=== PATIENT | male | born 1945 | race Caucasian/White ===

== ENCOUNTER 2019-03-17 15:03 | Inpatient (IN) | payer OTHER, MEDICARE ==
[~2019-03-17] VITALS: Ht 172.7 cm; Wt 64.4 kg
[~2019-03-17 15:03] MED LIST: ASPIR 8181 MG PO; COQ-10100 MG PO; CRESTOR40 MG PO; FISH OIL OMEGA1 EAC1 PO; HYDROCODON-ACE1 EAC5 PO; LISINOPRIL20 MG PO; MULTIVITAMINS1 EAC7 PO; PLAVIX 75 MG TA75 M1 PO; TOPROL XL50 MG PO; VITAMIN D2000 UNIT PO
[2019-03-17 15:05] VITALS: BP 152/67
[2019-03-17 15:42] LABS: ABSOLUTE NEUTROPHILS 5.4 thou/uL (1.4-8.2); BASOPHILS 1.8 % (0.0-2.0); HEMATOCRIT 41.6 % (42.0-52.0); HEMOGLOBIN 13.9 gm/dL (14.0-18.0); LYMPHOCYTES 23.9 % (24.0-44.0); MCH 31.6 pg (26.0-34.0); MCHC 33.3 g/dL (28.0-37.0); MCV 94.9 fL (80.0-100.0); MONOCYTES 10.7 % (1.0-8.0); PLATELET COUNT 179 thou/uL (150-400); POLYS 62.6 % (36.0-66.0); RBC 4.39 mil/uL (4.50-6.00); RDW 13.2 % (10.5-14.5); WBC 8.6 thou/uL (4.0-11.0)
[2019-03-17 16:01] LABS: ALBUMIN 3.4 g/dL (3.4-5.0); CREATININE 0.8 mg/dL (0.7-1.3); DIRECT BILIRUBIN 0.2 mg/dL (<0.1-0.2); POTASSIUM 3.6 mmol/L (3.5-5.1); TOTAL BILIRUBIN 0.8 mg/dL (<0.1-1.0); TOTAL PROTEIN 7.3 g/dL (6.4-8.2)
[2019-03-17 17:51] VITALS: BP 135/89
[2019-03-17 18:14] VITALS: BP 146/71
--- NOTE | 2019-03-17 18:46 | NUR ---
74 YO MALE ADMITTED TO 447 FROM ED. A&OX4, AMBULATES SELF IN ROOM. IV INTACT IN L FA. DENIES PAIN OR N/V AT THIS TIME AND REREQUESTING SOMETHING TO EAT. ORIENTED PT TO ROOM AND CALL LIGHT. PT WILL BE NPO AFTER MN.
[2019-03-17 22:10] VITALS: BP 115/63
[2019-03-18 03:40] VITALS: BP 123/67
--- NOTE | 2019-03-18 04:16 | NUR ---
ASSESSMENT COMPLETED.PT IS ALERT AND ORIENTED X 4. UP AD DIANA. AFEBRILE. IV FLUIDS INFUSING. NPO AFTER MIDNIGHT. PT C/O RLQ PAIN BUT DOES NOT WANT ANY PAIN MEDS. PROBABLY WILL HAVE SURGERY TODAY.
[2019-03-18 07:29] VITALS: BP 130/75
--- NOTE | 2019-03-18 14:44 | NUR ---
VASCULAR ACCESS NURSE NOTIFIED TO ASSESS THE PATIENTS RIGHT AC- THE NURSE REPORTS REDDNESS PAIN AND DISCOMFORT POST LAB DRAW 24 HOURS PRIOR. THE PATIENT AND FAMILY CONFIRM THE PATIENT DID HAVE A LAB DRAW YESTERDAY WHILE IN THE ER IN THE RIGHT AC. NO PERIPHERAL IV WAS INSERTED IN THE RIGHT ARM AND THE LEFT FOREARM PERIPHERAL IV IS WNL. THE RIGHT AC IS RED AND SWOLLEN ALONG THE VEIN. MEASURING APPROX 9CM UP THE ARM AND APPROX 2CM IN WIDTH. THE SITE IS HARD, WARM AND TENDER TO TOUCH. THE SITE WAS MARKED THE PATIENT IS REPORTING A SIGNIFICANT CHANGE THE SITE CONTINUES TO TRAVEL UP THE ARM AND BECOMING MORE PAINFUL. DR. WHITING HAS BEEN CONSULTED AND WILL ROUND TO SEE THE PATIENT THIS AFTERNOON. SPOKE TO NEAL SHEIKH ABOUT THE STREAK FORMATION AND PALPABLE CORD + PHLEBITIS SCALE OF 4. SHE WILL AWAIT DR. MELLO ASSESSMENT AND RECOMENDATION.
--- NOTE | 2019-03-18 15:14 | H ---
[facility] [place] [address] HISTORY AND PHYSICAL Name: SOPHIE GAGE Room #: 447-P [facility] IN M.R.#: [id number] Admission: 03/17/19 Attend Phys: Abelino Sotelo MD Discharge: Date of : 45 Report #: [id number] THIS REPORT FOR: //name// CC: Abhinav Sotelo CHIEF COMPLAINT: Abdominal pain. HISTORY OF PRESENT ILLNESS: The patient is a 74-year-old gentleman admitted to the Emergency Room yesterday with complaints of abdominal pain. Symptoms began on when he had pain in the right lower quadrant that was radiating across to the left side. He complained of some swollen or bloated type feeling, and loss of appetite. Unfortunately, [place] was out of the country and flew back some days later from [place] through [place]. He came to the office yesterday and was tender to palpation in the right lower quadrant. I sent him for an outpatient CT at diagnostic imaging, which showed some thickening and inflammation around the cecum, but the appendix could not be well-defined. He was directed to ER and subsequently admitted overnight. He underwent a colonoscopy in 03/2018, which just revealed internal hemorrhoids, but otherwise is unremarkable. He underwent a hemorrhoidectomy in 05/[address] Lester. Previously about 3 or 4 years ago, he had pain in the right lower quadrant, but not to this severity. His exam was unremarkable along with lab work. Ultrasound of the abdomen was unremarkable other than what a single gallstone. He also had a CT of the abdomen, which was unremarkable. PAST MEDICAL HISTORY: Coronary artery disease with prior history of stent, hypertension, peripheral vascular disease, dyslipidemia, COPD, chronic low back pain, kidney stones. PAST SURGICAL HISTORY: Noncontributory. FAMILY HISTORY: Noncontributory. SOCIAL HISTORY: He lives at home. No chronic alcohol or tobacco use. ALLERGIES: LIPITOR and TRAMADOL. MEDICATIONS: Toprol, Zestril, Crestor, vitamin D, multivitamin, CoQ10. He has used hydrocodone in the past and dexamethasone in the past for his back pain. REVIEW OF SYSTEMS: Denies headache, chest pain, shortness of breath, dysuria, myalgias, syncope or fall. OBJECTIVE: VITAL SIGNS: Temperature 36.8, pulse 57, respirations 17, blood pressure 130/75, O2 sat 100% on room air. [facility] [address] [place] [address] HISTORY AND PHYSICAL Name: SOPHIE GAGE Room #: 447-P [facility] IN ..#: [id number] Admission: 03/17/19 Attend Phys: Abelino Sotelo MD Discharge: Date of : 45 Report #: [id number] GENERAL: He is awake and alert, in no distress. LUNGS: Clear. HEART: Regular. ABDOMEN: Soft, normoactive bowel sounds. Tender with some guarding in the right lower quadrant. EXTREMITIES: No cyanosis, clubbing or edema. NEUROLOGIC: Cranial nerves intact. Alert and oriented. LABORATORY REVIEW: White count is 8.6. Chemistry is unremarkable. ASSESSMENT: Right lower quadrant abdominal pain. PLAN: Working diagnosis at this point as appendicitis, although it is not definitively clear on CT. I have spoken with Dr. Brandon and at this point, we will take a supportive approach. I have asked the GI team, Infectious Disease to see him as well. We may consider reimaging in 24-48 hours. Clinically, he appears stable. <ELECTRONICALLY SIGNED> By: Abelino Sotelo MD 03/18/19 1514 [id number] Abelino Sotelo MD /nt
[2019-03-18 15:49] VITALS: BP 136/77
--- NOTE | 2019-03-18 19:10 | NUR ---
PT A&OX4. AMBULATES SELF IN ROOM. IV INTACT IN L FA IFUSING FLUIDS W/O COMPS. DENIES NEED FOR PAIN MED THROUGHOUT THE DAY. PLACED ON CLEAR LIQUIDS AND TOLERATED. WILL CONT POC.
[2019-03-18 19:31] VITALS: BP 122/70
--- NOTE | 2019-03-18 20:08 | NUR ---
PT INFORMED THIS NURSE OF REDNESS TO R AC. HARDENED DIME SIZE AREA NOTED TO R AC WITH APPROX. 2 INCH RED STREAK GOING ABOVE AREA NOTED. IV TEAM NOTIFIED, KATINA RN ASSED THE SITE. CONSULTED TODAY THOUGH HAS NOT SEEN PT YET. NIGHT NURSE SAMANTHA INFORMED DURING SHIFT REPORT. UNABLE TO LEAVE VERG REPORT TEMPOARILY UNAVAILABLE.
--- NOTE | 2019-03-19 02:59 | NUR ---
ASSESSMENT COMPLETED. PT IS STILL UP AD DIANA. FINISHED BOWEL PREP BEFORE MIDNIGHT. HE HAS BEEN USING THE BATHROOM, AND REPORTS ALMOST CLR STOOL.AFEBRILE. CONTINUES ON IV ABTS AND FLUIDS. PLAN FOR COLONOSCOPY IN THE MORNING.
[2019-03-19 05:23] LABS: CALCIUM 8.8 mg/dL (8.5-10.1); CREATININE 0.8 mg/dL (0.7-1.3); POTASSIUM 4.1 mmol/L (3.5-5.1)
[2019-03-19 08:12] VITALS: BP 138/72
--- NOTE | 2019-03-19 10:39 | NUR ---
INITIAL ASSESSMENT: Pt evaluated for d/c planning needs. Reviewed chart and spoke with nurse and pt. Pt is alert and oriented. Pt lives in house with spouse and was independent with ADL's prior to admission to the hospital. Pt recently traveled to [place]; spouse remained in [place] to visit with her family. Pt uses no DME and has not had home health. Pt remains active in the community and is still driving. Pt plans on returning home on d/c from hospital. Will remain available to assist as needed.
[2019-03-19 18:16] VITALS: BP 123/71
[2019-03-19 19:45] VITALS: BP 121/75
--- NOTE | 2019-03-19 20:08 | NUR ---
Assumed care of pt at 0700. Pt went down for colonoscopy today. Will have his appendix removed tomorrow. Denies pain. IVF and antibiotics infusing. Pt transferred to senior suites.
--- NOTE | 2019-03-20 03:06 | NUR ---
PT WAS A TRANSFER FROM . PT ARRIVED TO THE UNIT WITH HIS SON. PT IS UP AD DIANA. PT HAS AN IV - LEFT AC. FLUIDS RUNNING @ 100MLS/HR. I HUNG PTS ANTIBIOTIC. PT IS A&OX4. PT HAS REDNESS ON HIS RIGHT ARM WITH A TRACE YAMILA TO WATCH ITS GROWTH. PT HAS REDDNESS ON THE LEFT ARM. PT ASKS QUESTIONS ABOUT HIS HEALTH. PT EXPRESSES THAT IF HE HAS TO STAY IN THE HOSPITAL OVER THE WEEKEND THAT HE WOULD NOT BE HAPPY. PT IS CONCERNED ABOUT HAVING TO HAVE MORE THAN THE APPENDIX REMOVED. PT IS AWARE THAT HE IS NPO AFTER MIDNIGHT. WILL CONTINUE TO MONITOR.
[2019-03-20 06:23] LABS: CALCIUM 8.7 mg/dL (8.5-10.1); CREATININE 0.8 mg/dL (0.7-1.3); POTASSIUM 3.8 mmol/L (3.5-5.1)
[2019-03-20 09:11] VITALS: BP 133/75
--- NOTE | 2019-03-20 12:51 | NUR ---
SW reviewed chart and spoke with nursing. Pt was transferred to [facility] from . Pt to have lap. appendectomy today. Pt remains on IV abx. Plan is for pt to discharge home when medically stable. [facility] is following to assist as needed with discharge planning.
[2019-03-20 16:11] VITALS: BP 156/89
--- NOTE | 2019-03-20 16:17 | NUR ---
PT IS AOX4, VSS, REPORTS PAIN 3/4 ON RIGHT SIDE OF AB. PT WENT DOWN FOR SURGICAL PROCEDURE, CURRENTLY IN HIS ROOM TOLERATING LIQUIDS, WILL ADVANCE TO REGULAR DIET. PT RECEIVED PAIN ANALGESIC ORDERED. CALL LIGHT/PERSONAL ITEMS IN REACH, WILL CONTINUE TO MONITOR PT.
[2019-03-20 21:29] VITALS: BP 118/81
--- NOTE | 2019-03-20 21:57 | NUR ---
AT APPROX 1999 PATIENT C/O PAIN AT INCISION SITE FROM LAPRASCOPIC APPENDECTOMY. PATIENT STATES HIS PAIN GETS UP TO A 10/10 ESPECIALLY WITH MOVEMENT OR CONTACT OF ANY KIND. PATIENT SAID WHEN HE TOUCHES HIS L SIDE IT RADIATES TO THE INCISION SITE. PATIENT SEEMS VERY WORRIED ABOUT THIS. UPON ASSESSMENT, BOWEL SOUNDS ARE ACTIVE; COLASE WAS GIVEN. PATIENT HAD A TURKEY SANDWHICH AT ABOUT 1900 AND WAS CONCERENED HE HADN'T HAD A BOWEL MOVEMENT SINCE 03/17/19. EDUCATION WAS PROVIDED. PAIN IS NOTED AND INCISION SITE WILL BE MONITORED FREQUENTLY. PATIENT HAS OXYCODONE ONETIME FOR BREAKTHROUGH PAIN. HE IS DECIDING WHETHER OR NOT TO TAKE IT. WILL CONTINUE TO MONITOR
--- NOTE | 2019-03-21 02:57 | NUR ---
ASSUMED PATIENT CARE AT APPROX. 1999. ASSESSMENT CHARTED. MEDICATIONS GIVEN PER MAY. PATIENT IS A&OX4, VITAL SIGNS ARE STABLE, O2 SATS REMAIN WNL ON RA. PATIENT C/O PAIN ON BOTH HIS LEFT AND RIGHT SIDE OF ABDOMEN. PATIENT IS CONCERNED THAT PERHAPS THE PROCEDURE HE HAD WENT WRONG. HE EXPRESSED CONCEREN SINCE HE DID NOT SEE DR. BULLOCK POST-OP. 20MLS OF DRAINAGE WERE MEASURED AT AROUND 0100. SURGICAL SITE WAS WARM TO TOUCH WITHOUT REDNESS. GAUZE WAS SATURATED IN SANGUENOUS DRAINAGE. UPON SKIN ASSESSMENT, REDNESS AND TRACE SWELLING WAS NOTED ON L ARM AROUND IV SITE. IV WAS D/C'D BY THIS NURSE AND SWELLING/REDNESS WAS TRACE MARKED. SCHEDULED PAIN AND ANTI-INFLAMMATORY MEDICATIONS IS GIVEN Q6 HOURS AND PRN PAIN MED IS AVAILABLE FOR PATIENT. PAIN CONTINUES TO VOICE PAIN AT A 8-10/10; EXACERBATED BY MOVEMENT AND CONTACT. WILL CONTINUE TO MONITOR PAIN LEVELS. PATIENT GETS UP INDEPENDENTLY WITH NO ISSUES EXCEPT PAIN. IV FLUIDS INFUSING AT 670ML/HR ON L UPPER ARM. PATIENT WOULD LIKE TO SLEEP THIS SHIFT. WILL CONTINUE TO MONITOR AND FOLLOW PLAN OF CARE.
--- NOTE | 2019-03-21 05:21 | NUR ---
CORRECTION; IV FLUIDS INFUSING AT 60 MLS/HR, L UPPER ARM IV PATENT AND INTACT
[2019-03-21 07:22] VITALS: BP 146/80
[2019-03-21 16:43] VITALS: BP 138/67
[2019-03-21 19:20] VITALS: BP 123/75
--- NOTE | 2019-03-21 19:26 | NUR ---
THIS NURSE AGREES WITH ASSESSMENT AND NOTES FROM [employer] DURING NIGHT OF 03/20/2019.
--- NOTE | 2019-03-21 19:51 | NUR ---
ASSUMED CARE OF PATIENT AT 0715, PATIENT UP AB DIANA IN HIS ROOM. PATIENT CONTINUES TO C/O PAIN WITH ABDOMEN AREA. 2 LAP SITES, WITH OZZY DRAIN WITH LEFT SIDE OF THE ABDOMEN AREA, 40CC EMPTIED THIS SHIFT. DR BULLOCK HERE TO SEE THE PATIENT, NEW ORDERS FOR INCREASE IN OXYCODONE IR FROM 5MG TO 10MG EVERY 4 HRS/PRN. PATIENT HAS SCHEDULED TYLENOL AND IBUPROFEN EVERY 6HRS SCHEDULED. LEFT UPPER ARM IV IN PLACE, RECEIVED 2 IV ANTIBIOTICS THIS SHIFTY. PATIENT HAD LEFT FOREARM IV IN PLACE HAS BEEN REMOVED, BUT HAS SMALL AMT OF SWELLING AND SLIGHT REDNESS NOTED, IMPROVING. LEFT UPPER IV WITH NS AT 60CC/HR. WILL CONTINUE TO MONITOR.
--- NOTE | 2019-03-22 04:44 | NUR ---
PATIENT ALERT AND ORIENTED X4. UP ADLIB IN ROOM. GIVEN MIRILAX WITH NO RESULTS AT TIME OF NOTE. IVF INFUSING W/O COMPLICATION. OZZY MONITORED, SEROSANG. DRAINAGE NOTED. DUE TO INCREASE OF PAIN MEDICATION PATIENT HAD A BETTER NIGHT SLEEPING. PATIENT REMAINS WITH PAIN RATING 6-7 ON SCALE OF 10 WHICH IS A SLIGHT IMPROVEMENT. PATIENT REQUESTS ZOFRAN IV BEFORE EACH PRN DOSE OF OXY IR 10MG PO WHICH HE STATES KEEPS HIS STOMACH CALM. RESTING QUIETLY. WILL MONITOR.
--- NOTE | 2019-03-22 06:54 | NUR ---
PATIENT C/O LEFT ARM WHICH HAS IVF INFUSING IN UPPER ARM TO BE PUFFY. THIS NURSE NOTED SMALL AMOUNT OF BLOOD IN LINE AND FLUSHED WITH NO COMPLICATION. HOWEVER, IVF WAS STOPPPED AND AM NURSE WILL BE NOTIFIED.
[2019-03-22 07:52] VITALS: BP 141/74
[2019-03-22 07:53] LABS: HEMATOCRIT 39.9 % (42.0-52.0); HEMOGLOBIN 13.2 gm/dL (14.0-18.0); MCH 31.4 pg (26.0-34.0); MCHC 33.1 g/dL (28.0-37.0); MCV 94.8 fL (80.0-100.0); RBC 4.21 mil/uL (4.50-6.00); RDW 13.2 % (10.5-14.5); WBC 7.3 thou/uL (4.0-11.0)
[2019-03-22 09:43] LABS: ALBUMIN 2.9 g/dL (3.4-5.0); CALCIUM 8.9 mg/dL (8.5-10.1); CREATININE 1.1 mg/dL (0.7-1.3); PHOSPHORUS 3.5 mg/dL (2.5-4.9); POTASSIUM 4.4 mmol/L (3.5-5.1)
--- NOTE | 2019-03-22 17:27 | NUR ---
PT ALERT AND ORIENTED TIMES FOUR. VSS, IVF INFUSING PER ORDER. OZZY DRAIN TO BLUD SUCTION. SCHEDULED PAIN MEDICATION CONTROLLING PAIN WELL. PT TOLERATES MEDS AND LIQUID DIET. PT UP AB DIANA WITH STEADY GAIT. WILL CONTINUE TO MONITOR.
[2019-03-22 19:35] VITALS: BP 129/74
--- NOTE | 2019-03-23 04:53 | NUR ---
PATIENT ALERT AND ORIENTED X4. UP ADLIB IN ROOM. IVF INFUSING W/O COMPLICATION. NO BM AT TIME OF NOTE. PATIENT IS ON A FULL LIQUID DIET HE MAY HAVE AN ILEUS. NO C/O NAUSEA OR VOMITING. PATIENT C/O OF A NEW PAIN THAT IS SHARP WHICH COMES AND GOES IN HIS STOMACH AND ESOPAGEAL AREA, HOWEVER, HE DID NOT WANT ANY PAIN MEDICATION FOR IT BECAUSE IT DID NOT LAST LONG. OZZY WITH VERY LIGHT SERO/SANG DRAINAGE WITH SMALL BLOOD CLOT. SLEEPING BETTER TONIGHT. WILL MONITOR.
[2019-03-23 07:32] VITALS: BP 142/78
--- NOTE | 2019-03-23 10:40 | NUR ---
ASSUME CARE OF PT AT 0700. PT AOX3, VSS, PAIN IN ABDOMINAL AREA CONTROLLED WITH PAIN ANALGESIC SCHEDULED. PT RATES PAIN 3/10, NO BM NOTED, TOLERATED LIQUID DIET, NO N/V, AND PT IS UP AD DIANA. RIGHT FOREARM IV FLUIDS RUNNING @ 6OML/HR. FALL PRECAUTIONS/CALL LIGHT/PERSONAL ITEMS IN REACH. WILL CONTINUE TO MONTIOR PT.
[2019-03-23 10:47] LABS: HEMATOCRIT 40.1 % (42.0-52.0); HEMOGLOBIN 13.5 gm/dL (14.0-18.0); MCH 31.6 pg (26.0-34.0); MCHC 33.7 g/dL (28.0-37.0); MCV 93.8 fL (80.0-100.0); RBC 4.27 mil/uL (4.50-6.00); RDW 13.4 % (10.5-14.5); WBC 5.5 thou/uL (4.0-11.0)
[2019-03-23 10:59] LABS: ALBUMIN 2.9 g/dL (3.4-5.0); CALCIUM 8.9 mg/dL (8.5-10.1); CREATININE 0.8 mg/dL (0.7-1.3); PHOSPHORUS 2.6 mg/dL (2.5-4.9); POTASSIUM 3.5 mmol/L (3.5-5.1)
[2019-03-23 13:52] VITALS: BP 145/85
--- NOTE | 2019-03-23 14:16 | NUR ---
SW reviewed chart and spoke with nursing. Pt is s/p lap appendectomy. Pt is on full liquids and on IV abx. Plan is for pt to discharge home when medically stable. [facility] is following to assist as needed with discharge planning.
--- NOTE | 2019-03-23 19:07 | PATH ---
[facility] [address] [place] [address] PATHOLOGY RPT PROCEDURE Name: SOPHIE GAGE Room #: 406-P [facility] IN M.R.#: [id number] Admission: 03/17/19 Date of : 45 Discharge: Report #: [id number] Path Case #: [id number] [facility] Accession Number: [id number] . 01 Material submitted: . appendix - APPENDIX . 01 Clinical history: . Chronic appendicitis . 02 Diagnosis: Appendix, appendectomy: - Marked acute appendicitis associated with acute serositis. - Fibrous obliteration of the tip. - Proximal margin unremarkable. (IUV/db; 03/23/2019) LBQ 03/23/2019 1356 Local . 02 Electronically signed: . Rima Bauman MD, Pathologist NPI- [id number] . 01 Gross description: . The specimen is received in formalin, labeled "Sophie Gage, appendix". Received is a vermiform appendix measuring 7.7 cm in length by up to 0.5 cm in diameter with a slight amount of attached mesoappendix. The serosal surface is pale rosenthal to pink-lindo and shaggy in appearance. The surgical margin is closed with a line of rachell. The rachell are removed the new margin is inked black. Sectioning reveals a pinpoint to patent lumen filled with a slight fecal material. The specimen is submitted representatively in cassettes A1 and A2, with the proximal margin and bisected tip submitted in cassette A1. (CAA; 03/22/2019) QAC/QAC 03/22/2019 1033 Local . 02 Pathologist provided ICD-10: K35.80, K65.8 . 02 CPT . 212392 Specimen Comment: A courtesy copy of this report has been sent to [phone] Specimen Comment: [id number] Specimen Comment: Report sent to / DR CABRAL Performed at: [address] [facility], [place] [id number] [place] [address] PATHOLOGY RPT PROCEDURE Name: SOPHIE GAGE Room #: 406-P [facility] IN M.R.#: [id number] Admission: 03/17/19 Date of : 45 Discharge: Report #: [id number] Path Case #: [id number] MD Tomas Crawford MD Phone: [phone] Performed at: [address] [id number] MD Rima Bauman MD Phone: [phone]
[2019-03-23 21:16] VITALS: BP 139/78
--- NOTE | 2019-03-24 05:17 | NUR ---
ASSUMED PT CARE AT APPROX 1920. PT A&OX4. PT HAS A OZZY DRAIN ON HIS LEFT LOWER ABDOMEN. PT RATED HIS PAIN AT A 4 ON HIS ABDOMINAL AREA. I HUNG THE PT'S ANTIBIOTIC. PT REFUSED POLYETHYLENE GLYCOL AND DOCUSATE SENNA. PT DID NOT LIKE THAT HE WAS NOT TOLD ABOUT WHY HE WAS TAKING MEDICATION. I TRIED TO EXPLAIN THE ADAT ON THE MEAL PLAN AND HE WAS NOT HAPPY ABOUT THE FACT THAT DR. BULLOCK DID NOT TELL HIM ABOUT THIS. I EXPLAINED TO HIM THAT THAT IS THE TYPICAL DIET PLAN. CLEAR LIQUIDS AND THEN TO ADAT. PT EXPRESSED THAT HE HAS A LOT OF QUESTIONS FOR THE DOCTOR IN THE AM. WILL CONTINUE TO MONITOR.
[2019-03-24 07:53] VITALS: BP 138/78
[2019-03-24] MEDS ORDERED: ASA81BEC PO (12:08)
[2019-03-24] MEDS ORDERED: CIPRO250 M1 PO (12:11)
[2019-03-24] MEDS ORDERED: METRONIDAZOLE500 M4 PO (12:11)
[2019-03-24 13:11] VITALS: BP 138/78
--- NOTE | 2019-03-24 14:50 | NUR ---
ASSUMED CARE OF PATIENT AT 0715, PATIENT ALERT AND ORIENTED X 4. UP AD DIANA. PATIENT C/O PAIN WITH ABDOMEN AREA, 4/10, RECEIVED IBUPROFEN THIS AM, PAIN DOWN TO 3/10. PATIENT HAS 2 LAP SITES, HAS OZZY DRAIN TO LEFT SIDE OF ABDOMEN, EMPTIED 25 CC OUT THIS SHIFT. DR WHITING HERE TO SEE THE PATIENT, STOP IV ANTIBIOTICS AND STARTED PO FLAGYL AND CIPRO. DR CABRAL HERE THIS AFTERNOON, RECEIVED ORDER FOR DISCHARGE TO HOME WITH SELF CARE. RIGHT FOREARM IV IN PLACE, DISCONTINUED PRIOR TO DISCHARGE. PATIENT STARTED PO FLAYGL 500MG 1 TABLET AT 1330. THIS RN WENT OVER ALL DISCHARGE PAPERWORK AND INSTRUCTED ON OZZY DRAIN, WHICH HE WILL DISCHARGE WITH TO GO HOME UNTIL F/U VISIT WITH DR BULLOCK. SCRIPTS GIVEN WITH INFO ON MEDS.
--- NOTE | 2019-03-24 15:30 | NUR ---
DISCHARGE NOTE: SW reviewed chart and spoke with nursing. Pt is medically stable for discharge home today. No discharge needs identified at this time, but is available to assist should needs arise.
--- NOTE | 2019-04-02 12:04 | D ---
[facility] [place] [address] [place] [address] DISCHARGE SUMMARY Name: SOPHIE GAGE Levi Room #: 406-P [facility] IN M.R.#: [id number] Admission: 03/17/19 Attend Phys: Abelino Sotelo MD Discharge: 03/24/19 Date of : 45 Report #: [id number] THIS REPORT FOR: //name// CC: Abhinav Sotelo DATE OF SERVICE: 03/24/2019 FINAL DIAGNOSIS: Acute appendicitis. PROCEDURE: 1. Laparoscopic appendectomy. 2. Colonoscopy. HOSPITAL COURSE: The patient was admitted with abdominal pain and an outpatient CT finding of inflammation around the cecum and a possible appendicitis. He was placed on antibiotics and supportive measures in consultation with Surgery and GI. Initially, the scans were unclear whether this was acute appendicitis or involvement of the cecum. Colonoscopy was performed, which seemed to confirm appendicitis based on their findings. Please see that dictated report. The following day, he underwent a laparoscopic cholecystectomy. His postoperative recovery was slow due to postoperative ileus. This was managed conservatively. He had no other medical complication. PHYSICAL EXAMINATION: GENERAL: On the day of discharge, he was tolerating a regular diet with stable vital signs and walking the halls. LUNGS: Clear. HEART: Regular. ABDOMEN: Soft, normoactive bowel sounds and he had OZZY postop drain in place, draining yellowish but clear fluid. EXTREMITIES: Unremarkable. DISPOSITION: He will be discharged to home with diet and activity as tolerated. No heavy lifting. He has a OZZY drain in place. Follow up with Dr. Brandon in one week. He will be on oral Cipro and Flagyl for 1 more week. Follow up with me in 3 weeks. Resume all usual home medications. <ELECTRONICALLY SIGNED> By: Abelino Sotelo MD 04/02/19 1204 1621 [id number] Abelino Sotelo MD /nt
== END 2019-03-24 15:01 | disposition home or self-care (01) | DRG 339 ==
LOC: ER 15:03 → EROBS 17:37 → 4S 17:37 → 4N 17:37 → 4S 18:19 → 4N 03-19 19:30 → ENTRNSPT 03-24 14:37 → EDTRNSPTSTS 03-24 14:40 → 4N 03-24 15:01
PROVIDERS: Emergency Medicine; Surgery; ADMIT Internal Medicine Geriatric Medicine
PROC: 0DJD8ZZ Inspection of Lower Intestinal Tract, Via Natural or Artificial Opening Endoscopic (ICD-10-PCS; principal; 2019-03-19)
PROC: 0DTJ4ZZ Resection of Appendix, Percutaneous Endoscopic Approach (ICD-10-PCS; 2019-03-20)
DX: K35.32 Acute appendicitis with perforation, localized peritonitis, and gangrene, without abscess (principal); K56.7 Ileus, unspecified; K52.9 Noninfective gastroenteritis and colitis, unspecified; K80.20 Calculus of gallbladder without cholecystitis without obstruction; K36 Other appendicitis; D18.09 Hemangioma of other sites; I72.3 Aneurysm of iliac artery; K64.8 Other hemorrhoids; I25.10 Atherosclerotic heart disease of native coronary artery without angina pectoris; I10 Essential (primary) hypertension; I73.9 Peripheral vascular disease, unspecified; E78.5 Hyperlipidemia, unspecified; G89.29 Other chronic pain; J44.9 Chronic obstructive pulmonary disease, unspecified; M54.5 Low back pain; J30.2 Other seasonal allergic rhinitis; K42.9 Umbilical hernia without obstruction or gangrene; K40.90 Unilateral inguinal hernia, without obstruction or gangrene, not specified as recurrent; Z87.442 Personal history of urinary calculi; Z79.899 Other long term (current) drug therapy; Z95.5 Presence of coronary angioplasty implant and graft; Z88.8 Allergy status to other drugs, medicaments and biological substances; Z87.891 Personal history of nicotine dependence
CPT/HCPCS: 10091; 10195; 50010; 50101; 50249; 50411; 50555; 50558; 50739; 50740; 51489; 52265; 52266; 53307; 53310; 53312; 54022; 54118; 56462; 56525; 56526; 62110; 62900; 70005